=== PATIENT | male | born 1955 | race Caucasian/White ===

== ENCOUNTER 2021-04-19 20:57 | Emergency (ER) | payer OTHER ==
[2021-04-19 21:04] VITALS: BP 148/89; PULSE 78; TEMP 98.6; BMI 22.1
== END 2021-04-19 22:47 | disposition home or self-care (01) ==
LOC: FER 20:57
DX: R09.89 Other specified symptoms and signs involving the circulatory and respiratory systems (principal)
CPT/HCPCS: 99281-25